=== PATIENT | female | born 1995 | race Caucasian/White ===

== ENCOUNTER 2018-07-28 14:50 | Emergency (ER) | payer OTHER, BC ==
[~2018-07-28] VITALS: Ht 165.1 cm; Wt 47.6 kg
[~2018-07-28 14:50] MED LIST: CIPROFLOXACIN500 M1 PO; LEXAPRO; LEXAPRO20 MG PO; MELATONIN; NOHOMEMEDICATIONS; ORTHO TRI-CYCL1 EACH PO; PYRIDIUM200 MG PO
[2018-07-28 15:51] VITALS: BP 124/72
== END 2018-07-28 15:52 | disposition home or self-care (01) ==
LOC: M.ERS 14:50
DX: S60.221A Contusion of right hand, initial encounter (principal); F32.9 Major depressive disorder, single episode, unspecified; W22.8XXA Striking against or struck by other objects, initial encounter; Y93.89 Activity, other specified; Y92.89 Other specified places as the place of occurrence of the external cause; Y99.8 Other external cause status

== ENCOUNTER 2018-08-28 16:06 | Emergency (ER) | payer OTHER, BC ==
[~2018-08-28] VITALS: Ht 165.1 cm; Wt 44.5 kg
[2018-08-28 16:44] LABS: URINE BILIRUBIN NEGATIVE (Negative); URINE BLOOD NEGATIVE (Negative); URINE CLARITY CLEAR; URINE COLOR YELLOW; URINE GLUCOSE-RANDOM NEGATIVE (Negative); URINE KETONES NEGATIVE (Negative); URINE LEUKOCYTES-REFLEX NEGATIVE (Negative); URINE NITRITE-REFLEX NEGATIVE (Negative); URINE PROTEIN NEGATIVE (Negative); URINE SPECIFIC GRAVITY 1.015 (1.005-1.030); URINE UROBILINOGEN 0.2 E.U./dl (0.2-1.0)
[2018-08-28 17:02] LABS: ABSOLUTE LYMPHOCYTES 1.1 thou/uL (0.8-5.3); ABSOLUTE MONOCYTES 0.4 thou/uL (0.0-1.2); ABSOLUTE NEUTROPHILS 6.1 thou/uL (1.6-8.1); BASOPHILS 0.4 %; EOSINOPHILS 0.2 %; HEMATOCRIT 42.2 % (37.0-47.0); HEMOGLOBIN 14.5 gm/dL (12.0-15.0); LYMPHOCYTES 14.5 %; MCH 34.8 pg (26.0-34.0); MCHC 34.5 g/dL (28.0-37.0); MCV 100.9 fL (80.0-100.0); MONOCYTES 4.9 %; NUCLEATED RBCS 0 /100WBC; PLATELET COUNT* 203 thou/uL (150-400); RBC 4.18 mil/uL (4.20-5.00); RDW-CV 13.6 % (10.5-14.5); WBC 7.6 thou/uL (4.0-11.0)
[2018-08-28 17:08] LABS: CALCIUM 8.6 mg/dL (8.5-10.1); CREATININE 0.6 mg/dL (0.6-1.3); POTASSIUM 3.6 mmol/L (3.5-5.1)
[2018-08-28 17:13] LABS: ALBUMIN 3.8 g/dL (3.4-5.0); TOTAL BILIRUBIN 0.3 mg/dL (<0.1-1.0); TOTAL PROTEIN 7.3 g/dL (6.4-8.2)
[2018-08-28] MEDS ORDERED: ZOFRAN4 MG PO (17:18)
[2018-08-28 17:22] VITALS: BP 115/72
== END 2018-08-28 17:23 | disposition home or self-care (01) ==
LOC: M.ERS 16:06
PROVIDERS: Nurse Practitioner Family
DX: R11.2 Nausea with vomiting, unspecified (principal); R19.7 Diarrhea, unspecified; R10.84 Generalized abdominal pain; F32.9 Major depressive disorder, single episode, unspecified

== ENCOUNTER 2018-11-04 20:57 | Emergency (ER) | payer OTHER, BC ==
[~2018-11-04] VITALS: Ht 165.1 cm; Wt 49.9 kg
[~2018-11-04 20:57] MED LIST changes: +ZOFRAN4 MG PO
[2018-11-04] MEDS ORDERED: OXYCONTIN10 M1 PO (21:10)
[2018-11-04 21:38] LABS: ABSOLUTE BASOPHILS 0.1 thou/uL (0.0-0.2); ABSOLUTE EOSINOPHILS 0.1 thou/uL (0.0-0.7); ABSOLUTE LYMPHOCYTES 1.9 thou/uL (0.8-5.3); ABSOLUTE MONOCYTES 0.6 thou/uL (0.0-1.2); ABSOLUTE NEUTROPHILS 6.9 thou/uL (1.6-8.1); BASOPHILS 0.7 %; HEMATOCRIT 39.9 % (37.0-47.0); HEMOGLOBIN 13.7 gm/dL (12.0-15.0); LYMPHOCYTES 19.5 %; MCH 34.5 pg (26.0-34.0); MCHC 34.4 g/dL (28.0-37.0); MCV 100.3 fL (80.0-100.0); MPV 8.3 fl. (7.2-11.1); NUCLEATED RBCS 0 /100WBC; PLATELET COUNT* 275 thou/uL (150-400); POLYS 72.8 %; RBC 3.98 mil/uL (4.20-5.00); RDW-CV 12.9 % (10.5-14.5); WBC 9.5 thou/uL (4.0-11.0)
[2018-11-04 21:46] LABS: CALCIUM 9.6 mg/dL (8.5-10.1); CREATININE 0.6 mg/dL (0.6-1.3); POTASSIUM 3.5 mmol/L (3.5-5.1)
[2018-11-04 21:50] LABS: ALBUMIN 4.2 g/dL (3.4-5.0); TOTAL BILIRUBIN 0.3 mg/dL (<0.1-1.0); TOTAL PROTEIN 8.3 g/dL (6.4-8.2)
[2018-11-04 21:52] LABS: URINE BILIRUBIN NEGATIVE (Negative); URINE BLOOD NEGATIVE (Negative); URINE CLARITY CLEAR; URINE COLOR YELLOW; URINE GLUCOSE-RANDOM NEGATIVE (Negative); URINE KETONES NEGATIVE (Negative); URINE LEUKOCYTES-REFLEX NEGATIVE (Negative); URINE NITRITE-REFLEX NEGATIVE (Negative); URINE PROTEIN NEGATIVE (Negative); URINE SPECIFIC GRAVITY 1.015 (1.005-1.030); URINE UROBILINOGEN 0.2 E.U./dl (0.2-1.0)
[2018-11-04 22:33] VITALS: BP 109/54
== END 2018-11-04 22:38 | disposition home or self-care (01) ==
LOC: M.ERS 20:57
PROVIDERS: Nurse Practitioner Family
DX: R10.32 Left lower quadrant pain (principal); R10.11 Right upper quadrant pain; R10.31 Right lower quadrant pain; R10.12 Left upper quadrant pain; F32.9 Major depressive disorder, single episode, unspecified

== ENCOUNTER → 2018-12-08 | Outpatient (CLI) | payer OTHER, BC ==
[~2018-12-08] MED LIST changes: +OXYCONTIN10 M1 PO
[2018-12-08 13:41] LABS: ABSOLUTE BASOPHILS 0.1 thou/uL (0.0-0.2); ABSOLUTE LYMPHOCYTES 1.8 thou/uL (0.8-5.3); ABSOLUTE MONOCYTES 0.3 thou/uL (0.0-1.2); ABSOLUTE NEUTROPHILS 3.4 thou/uL (1.6-8.1); BASOPHILS 0.9 %; EOSINOPHILS 0.6 %; HEMATOCRIT 41.4 % (37.0-47.0); HEMOGLOBIN 13.7 gm/dL (12.0-15.0); LYMPHOCYTES 32.3 %; MCH 33.4 pg (26.0-34.0); MCHC 33.1 g/dL (28.0-37.0); MCV 101.2 fL (80.0-100.0); MONOCYTES 5.8 %; MPV 7.9 fl. (7.2-11.1); NUCLEATED RBCS 0 /100WBC; PLATELET COUNT* 259 thou/uL (150-400); POLYS 60.4 %; RBC 4.09 mil/uL (4.20-5.00); RDW-CV 13.5 % (10.5-14.5); WBC 5.7 thou/uL (4.0-11.0)
[2018-12-08 14:31] LABS: % SATURATION 36 % (20-39); IRON 149 ug/dL (50-175)
[2018-12-09 07:12] LABS: HIV-1/HIV-2 ANTIBODY Non Reactive (Non Reactive)
== END ==
LOC: M.LAB 13:11
PROVIDERS: Internal Medicine
DX: D53.9 Nutritional anemia, unspecified (principal); Z77.21 Contact with and (suspected) exposure to potentially hazardous body fluids